=== PATIENT | female | born 1930 | race Caucasian/White ===

== ENCOUNTER 2017-10-10 12:54 | Outpatient (CLI) | payer MEDICARE, MEDICAID ==
[2017-10-10] MEDS ORDERED: Iopamidol 370 76% 100 ML VIAL ONE (13:47)
== END 2017-10-10 12:55 | disposition home or self-care (01) ==
LOC: BICCT 12:54
PROVIDERS: ATTEND Family Medicine
DX: K11.8 Other diseases of salivary glands (principal); I65.21 Occlusion and stenosis of right carotid artery; I77.1 Stricture of artery; Z86.73 Personal history of transient ischemic attack (TIA), and cerebral infarction without residual deficits
CPT/HCPCS: 70491